=== PATIENT | female | born 1935 | race Hispanic/Latino ===

== ENCOUNTER 2019-03-05 05:43 | Day surgery (SDC) | payer MEDICARE ==
[2019-02-25 12:05] VITALS: BP 133/74
[2019-02-25 12:42] LABS: BASOPHILS % (AUTO) 0.5 % (0.0-5.0); EOSINOPHILS % (AUTO) 1.8 % (0.0-8.0); HEMATOCRIT 41.3 % (36-48); LYMPHOCYTES % (AUTO) 22.6 % (21.0-51.0); MEAN CORPUSCULAR HEMOGLOBIN 29.2 pg (27.0-33.0); MEAN CORPUSCULAR HGB CONC 33.7 g/dL (32.0-36.0); MEAN CORPUSCULAR VOLUME 86.6 fL (79-99); MONOCYTES % (AUTO) 8.3 % (3.0-13.0); NEUTROPHILS % (AUTO) 66.8 % (40.0-77.0); PLATELET COUNT (AUTO) 262 K/uL (130-400); RED BLOOD CELL COUNT(AUTO) 4.77 MIL/uL (4.00-5.50); RED CELL DISTRIBUTION WIDTH 14.5 % (11.0-15.5); WHITE BLOOD COUNT (AUTO) 7.6 K/uL (4.8-10.8)
[2019-02-25 12:48] LABS: CREATININE 0.7 mg/dL (0.5-1.5)
[~2019-03-05] VITALS: Ht 157.5 cm; Wt 85.6 kg
[2019-03-05] VITALS (9 sets, daily range): BP systolic 128–151; BP diastolic 62–82
[2019-03-05] MEDS: CEFAZOLIN SODIUM 1 GM VIAL IVP SCH ×2 (05:00→07:30)
[~2019-03-05 05:43] MED LIST: IBAN150T8 PO; LISI2.5T2 PO; PRAV10TA39 PO
[2019-03-05] MEDS ORDERED: LACTATED RINGERS 1000ML 1,000 ML IV ONE (06:03)
[2019-03-05] MEDS ORDERED: ASPI-555 PO (06:31)
[2019-03-05] MEDS ORDERED: CYAN250014 PO (06:31)
[2019-03-05] MEDS ORDERED: ASCO500T96 PO (06:31)
[2019-03-05] MEDS ORDERED: FOLI-103 PO (06:31)
[2019-03-05] MEDS ORDERED: CITRACAL PO (06:31)
[2019-03-05] MEDS ORDERED: CHOL400C9 PO (06:31)
[2019-03-05] MEDS ORDERED: POTA99TA21 PO (06:31)
[2019-03-05] MEDS ORDERED: FISH1CAP20 PO (06:31)
[2019-03-05] MEDS ORDERED: LIDOCAINE HCL-MPF 0.5% 50ML VIAL IJ ONE (06:47)
[2019-03-05] MEDS ORDERED: LIDOCAINE PF 2% 5ML ABBOJECT ONE (06:48)
[2019-03-05] MEDS ORDERED: PROPOFOL 10 MG/ML 20ML VIAL IV ONE (06:49)
[2019-03-05] MEDS ORDERED: ONDANSETRON HCL 4 MG/2 ML VIAL ONE (06:49)
[2019-03-05] MEDS ORDERED: DEXAMETHASONE SOD PHOSPHATE 10MG/ML 1ML VIAL ONE (06:49)
[2019-03-05] MEDS ORDERED: MIDAZOLAM HCL 1 MG/ML 2ML VIAL ONE ×2 (06:49→08:10)
[2019-03-05] MEDS ORDERED: FENTANYL CITRATE PF 50 MCG/1 ML 2ML VIAL ONE ×2 (06:50→08:11)
[2019-03-05] MEDS ORDERED: LIDOCAINE HCL 1% 20 ML VIAL ONE (08:10)
[2019-03-05] MEDS ORDERED: BACITRACIN 50,000 UNIT VIAL ONE (08:11)
--- NOTE | 2019-03-05 09:30 | NUR ---
POST OP RECEIVED PT FROM PACU, S/P RIGHT CARPAL TUNNEL RELEASE, DRESSING TO SITE DRY AND INTACT, NEUROVASCULAR CHECKS WNL. PT AWAKE AND ALERT, VS STABLE. PT DENIES ANY PAIN OR DISCOMFORTS. DRESSING LOOSEN UP A BIT PER PTS REQUEST, "DRESSING TO TIGHT" . WILL CONTINUE TO MONITOR
[2019-03-05] MEDS ORDERED: EPHEDRINE SULFATE 50 MG/ML AMPULE ONE (09:41)
--- NOTE | 2019-03-05 10:05 | NUR ---
DC PT DC HOME VIA WC,NO DISTRESS NOTED. ACCOMPANIED BY FAMILY FRIEND, NO DISTRESS NOTED. RIGHT HAND DRESSING DRY AND INTACT.
[2019-03-05] MEDS ORDERED: ROCURONIUM 10MG/1ML SYR 10 MG/ML ML ONE (10:24)
[2019-03-05] MEDS ORDERED: PHENYLEPHRINE HCL 10 MG/ML 1ML VIAL IV ONE (10:36)
[2019-03-05] MEDS ORDERED: LIDOCAINE 2%-EPI 1:200,000 20 ML VIAL IJ ONE (12:22)
== END 2019-03-05 10:05 | disposition home or self-care (01) ==
LOC: DAH 05:43
PROVIDERS: ATTEND Neurological Surgery
DX: G56.01 Carpal tunnel syndrome, right upper limb (principal); D17.21 Benign lipomatous neoplasm of skin and subcutaneous tissue of right arm; I10 Essential (primary) hypertension; E11.9 Type 2 diabetes mellitus without complications; E66.9 Obesity, unspecified; F15.90 Other stimulant use, unspecified, uncomplicated; Z79.899 Other long term (current) drug therapy; Z98.890 Other specified postprocedural states; Z90.710 Acquired absence of both cervix and uterus; Z68.34 Body mass index [BMI] 34.0-34.9, adult; Z79.82 Long term (current) use of aspirin; Z83.3 Family history of diabetes mellitus
CPT/HCPCS: 25071; 36415; 64721; 80048; 85025; 88307; 93005; A4218; J0690; J1100; J2001; J2250 ×2; J2370; J2405; J2704; J3010 ×2; J3490 ×3; J7120

== ENCOUNTER 2025-05-28 07:43 | Day surgery (SDC) | payer MEDICARE ==
--- NOTE | 2025-05-26 09:15 | EKG ---
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
[2025-05-26 09:22] VITALS: BP 107/65; PULSE 64; RESP 17; TEMP 97.4
[2025-05-26 09:23] LABS: IMMATURE GRANULOCYTE ABSOLUTE 0.03 K/uL (0-1); NUCLEATED RED BLOOD CELLS 0.0 % (0.0-0.19); PLATELET COUNT (AUTO) 388 K/uL (130-400); RED BLOOD CELL COUNT(AUTO) 4.43 MIL/uL (4.00-5.50); RED CELL DISTRIBUTION WIDTH 18.6 % (11.0-15.5); WHITE BLOOD COUNT (AUTO) 7.1 K/uL (4.8-10.8)
[2025-05-26 09:45] LABS: CREATININE 1.1 mg/dL (0.5-1.0); GLOMERULAR FILTR. RATE CALC 48.0 mL/min (>90); GLUCOSE,RANDOM 108.0 mg/dL (70-105); SODIUM SERUM 142.0 mmol/L (136-145); UREA NITROGEN, BLOOD 20.0 mg/dL (7-18)
[2025-05-26 09:46] LABS: INR 1.08 (0.85-1.15)
[~2025-05-28] VITALS: Ht 157.5 cm; Wt 10.0 kg
[~2025-05-28 07:43] MED LIST changes: +ATOR-2 PO; +BACL10TA PO; +CELE-146 PO; +DILT180C77 PO; +DULO60CA64 PO; +GABA300C PO; +IBAN150T21 PO; -IBAN150T8 PO; -LISI2.5T2 PO; +METO50TA18 PO; +PANT40TA54 PO; -PRAV10TA39 PO; +TAMS-55 PO; +tylenol arthritis PO
[2025-05-28 08:00] VITALS: BP 133/64; PULSE 66; RESP 15; TEMP 96.9
[2025-05-28] MEDS ORDERED: MIDAZOLAM HCL 1 MG/ML 2ML VIAL IVP ONE (08:00)
[2025-05-28] MEDS: LIDOCAINE HCL 2% VISCOUS 15 ML UDCUP PO ONE (10:30)
[2025-05-28] MEDS ORDERED: PERFLUTREN PROTEIN-A MICROSPHR 0.22 MG/ML VIAL IV ONE (10:30)
--- NOTE | 2025-05-28 10:42 | NUR ---
TRINI PROBE ADVANCED AT THIS TIME VSS NAD TRINI STARTED
--- NOTE | 2025-05-28 10:52 | NUR ---
TRINI FINISHED AT THIS TIME
--- NOTE | 2025-05-28 10:52 | NUR ---
BUBBLE STUDY DONE AT THIS TIME VSS NAD
[2025-05-28 10:55] VITALS: BP 108/57; PULSE 61; RESP 14; TEMP 97.5
--- NOTE | 2025-05-28 10:55 | NUR ---
PT TALKING WITH STAFF AND DR. CASTELLANOS
[2025-05-28 11:10] VITALS: BP 114/60; PULSE 61; RESP 14
[2025-05-28 11:25] VITALS: BP 114/56; PULSE 61; RESP 12
[2025-05-28] MEDS: 0.9%NACL 1000ML 1,000 ML IV SCH (11:35)
[2025-05-28] MEDS: MIDAZOLAM HCL 1 MG/ML 2ML VIAL IVP ONE ×2 (11:36→11:38)
[2025-05-28 11:40] VITALS: BP 115/53; PULSE 58; RESP 12
[2025-05-28 11:55] VITALS: BP 113/55; PULSE 61; RESP 12
--- NOTE | 2025-05-28 11:57 | NUR ---
BOTH PT AND SON IN LAW GIVEN VERBAL AND WRITTEN DISCHARGE INSTRUCTIONS. IV REMOVED SITE ASYMPTOMATIC. PT DISCHARGED VIA EMS STRETCHER
--- NOTE | 2025-05-28 15:53 | HMCSR ---
APPROVED REPORT EXAM: Transesophageal echocardiogram with color flow Doppler. INDICATION ICD: I47.1 Supraventricular tachycardia PROCEDURE After obtaining informed consent, patient underwent transesophageal echo in the Patient Room 15. 15 mL 2% Viscous Lidocaine was given as a topical anesthetic prior to the administration of the consc ious sedation. Type of Sedation: Conscious Sedation Sedation was administered by NR. Ramona Sedation was achieved with refer to chart intravenously. Transesophageal probe was inserted and advanced into esophagus without difficulty by Dr. Mike. Echo enhancement indication: R/O Septal defect. Echo enhancement agent administered: Agitated Saline. TRINI was performed and images were obtained, probe was removed without complications. Throughout the procedure, the blood pressure, pulse oximetry, cardiac rhythm, and rate were monitored . The patient tolerated the procedure without adverse effects. Recovery from conscious sedation was une ventful and vital signs were stable. Left Ventricle Left ventricular cavity size is normal. Atria The left atrium size is normal. No thrombus is visualized in the left atrium or appendage. Atrial sep jaycee aneurysm is present without PFO by agitated saline. The right atrium is moderately dilated. Aortic Valve The aortic valve is mildly calcified and displays decreased opening. No aortic regurgitation is prese nt. There is no aortic valvular stenosis. Planimetry of aortic valve measures 1.2 centimeter squared and 0.9 centimeter squared Mitral Valve Mitral valve leaflets are mildly calcified but open adequately. Mitral regurgitation is mild to moder ate. There is no mitral valve stenosis. Tricuspid Valve The tricuspid valve is normal in structure. There is mild tricuspid valve regurgitation noted. Pulmonic Valve The pulmonary valve is normal in structure and function. There is no pulmonic valvular regurgitation. Great Vessels The aortic root is normal in size. Pericardium No pericardial effusion. Conclusion The left atrium size is normal. No thrombus is visualized in the left atrium or appendage. 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 The right atrium is moderately dilated. The aortic valve is mildly calcified and displays decreased opening. There is no aortic valvular stenosis. Planimetry of aortic valve measures 1.2 centimeter squared and 0.9 centimeter squared Mitral regurgitation is mild to moderate. There is mild tricuspid valve regurgitation noted.
== END 2025-05-28 12:05 | disposition home or self-care (01) ==
LOC: DAH 07:43
PROVIDERS: ATTEND Internal Medicine Cardiovascular Disease
DX: I47.19 Other supraventricular tachycardia (principal); I08.3 Combined rheumatic disorders of mitral, aortic and tricuspid valves; I25.3 Aneurysm of heart; I10 Essential (primary) hypertension; E78.5 Hyperlipidemia, unspecified; Z86.73 Personal history of transient ischemic attack (TIA), and cerebral infarction without residual deficits; M19.90 Unspecified osteoarthritis, unspecified site; Z79.84 Long term (current) use of oral hypoglycemic drugs; Z79.01 Long term (current) use of anticoagulants; Z79.82 Long term (current) use of aspirin; Z79.899 Other long term (current) drug therapy
CPT/HCPCS: 80048; 85025; 85610; 85730; 36415; 93005; 99152; 93325; C8925; J3010; J7030; J2250; Q9956; A4215; A4657; A4335; A4222; A4663; A4216; A4606; A4223 ×3; A4554; A4221; 93312; G0500